=== PATIENT | female | born 1985 | race Caucasian/White ===

== ENCOUNTER 2021-03-29 10:12 | Emergency (ER) | payer OTHER ==
[~2021-03-29] VITALS: Ht 165.1 cm; Wt 77.1 kg
[2021-03-29 10:45] VITALS: BP 103/70
[2021-03-29] MEDS ORDERED: LOPERAMIDE 2 MG2 M1 PO (11:18)
[2021-03-29] MEDS ORDERED: APAP W/CODEINE1 TA2 PO (11:18)
== END 2021-03-29 11:22 | disposition home or self-care (01) ==
LOC: M.ERS 10:12
DX: U07.1 COVID-19 (principal)